=== PATIENT | male | born 1995 | race Two or more races ===

== ENCOUNTER 2018-11-26 20:55 | Emergency (ER) | payer SELFPAY ==
--- NOTE | 2018-11-26 21:47 | EDM.PDOCBH ---
<Roya Sanabria Jo-Ann - Last Filed: 11/26/18 22:41> ED HPI GENERAL MEDICAL PROBLEM - General Chief Complaint: Behavioral/Psych Stated Complaint: SUICIDAL THOUGHTS TOOK 10 PILLS Time Seen by Provider: 11/26/18 21:20 Source of Information: Reports: Patient, RN Notes Reviewed History Limitations: Reports: No Limitations - History of Present Illness INITIAL COMMENTS - FREE TEXT/NARRATIVE: Patient is a 23-year-old male who presents to the ED for the evaluation of suicidal ideations. He notes that he has a history of schizophrenia, and he says he just wasn't feeling good this morning. He ended up taking 10 of his Seroquel in hopes to go to sleep. He states that he does hear voices, however they only tell him that he is God. They never tell him to hurt himself, he denies seeing anything that is not there. He notes that he was baptized roughly 3 years ago, and ever since then his life has not been the same. The patient is from [place], and is up in [place] to visit his brother in hopes to get a possible job. he states that he got his Seroquel prescription from a doctor at [facility] in [place]. He cannot remember the doctor's name however. He states that he has tried therapy in the past, but this just does not work for him. I did ask him specifically if he took these pills in attempts to take his life, and he says he doesn't want to kill himself because he can't , Because he is God. He denies any other feelings of being unwell such as fever/chills, nausea/vomiting/diarrhea, chest pain, shortness of breath. He notes that he did try something similar on November 23 and just he slept all day and woke up that night. - Related Data Allergies Allergy/AdvReac Type Severity Reaction Status Date / Time No Known Allergies Allergy Verified 11/26/18 21:17 Past Medical History Gastrointestinal History: Reports: Other (See Below) (liver issues) Psychiatric History: Reports: Schizophrenia, Suicidal Ideation Social & Family History - Tobacco Use Smoking Status *Q: Light Tobacco Smoker (states that he smokes 1ppd when he has money) Tobacco Use Within Last Twelve Months: Cigarettes Second Hand Smoke Exposure: No - Alcohol Use Alcohol Use History: Yes Alcohol Use Frequency: Rarely (he states that he used to drink when he was younger, but he hurt his liver, so he doesn't drink regularly.) - Recreational Drug Use Recreational Drug Use: Yes Recreational Drug Type: Reports: Cocaine, Marijuana/Hashish, Methamphetamine Recreational Drug Use Comment: He states that he no longer uses drugs, but he used to. - Living Situation & Occupation Living situation: Reports: Single, with Family (with brother) Occupation: Unemployed ED ROS GENERAL - Review of Systems Review Of Systems: See Below Constitutional: Reports: No Symptoms HEENT: Reports: No Symptoms Respiratory: Reports: No Symptoms Cardiovascular: Reports: No Symptoms Endocrine: Reports: No Symptoms GI/Abdominal: Reports: No Symptoms : Reports: No Symptoms Musculoskeletal: Reports: No Symptoms Skin: Reports: No Symptoms Neurological: Reports: No Symptoms Psychiatric: Reports: Hallucinations, Suicidal Ideation (SEE HPI), Other ( hearing voices). Denies: Agitation, Anxiety, Confusion, Cravings, Homicidal Ideation Hematologic/Lymphatic: Reports: No Symptoms Immunologic: Reports: No Symptoms ED EXAM, BEHAVIORAL HEALTH - Physical Exam Exam: See Below Exam Limited By: No Limitations General Appearance: Alert, WD/WN, No Apparent Distress Eye Exam: Bilateral Eye: EOMI, Normal Inspection, PERRL Ears: Normal External Exam Nose: Normal Inspection Throat/Mouth: Normal Inspection Head: Atraumatic, Normocephalic Neck: Normal Inspection, Supple, Non-Tender, Full Range of Motion Respiratory/Chest: No Respiratory Distress, Lungs Clear, Normal Breath Sounds, No Accessory Muscle Use, Chest Non-Tender Cardiovascular: Normal Peripheral Pulses, Regular Rate, Rhythm, No Murmur GI/Abdominal: Normal Bowel Sounds, Soft, Non-Tender, No Distention, No Mass Extremities: Normal Inspection, Normal Capillary Refill Neurological: Alert, Normal Gait, No Motor/Sensory Deficits, Oriented x 3 Psychiatric: Alert, Oriented, Flat Affect, Poor Eye Contact, Withdrawn, Religion Delusions (He hears voices that tell him he is God.), Suicidal Thoughts, Auditory Hallucinations (hears voices that tell him he is God). No: Uncooperative, Homicidal Thoughts, Suicidal Plan, Tangential Thoughts, Visual Hallucinations, Grandiose Thoughts, Pressured Speech, Paranoid Thoughts, Threatening Behavior Skin Exam: Warm, Dry, Intact, Normal color, No rash EKG INTERPRETATION EKG Date: 11/26/18 Time: 21:58 Rhythm: Other (sinus tach) Rate (Beats/Min): 112 Trosper: Normal P-Wave: Present QRS: Normal ST-T: Normal QT: Normal Comparison: NA - No Prior EKG EKG Interpretation Comments: Reviewed with Dr. Colin. COURSE, BEHAVIORAL HEALTH COMP - Course Vital Signs: Last Vital Signs Temp 97.1 F 11/27/18 11:32 Pulse 102 H 11/27/18 11:32 Resp 18 11/27/18 11:32 BP 142/90 H 11/27/18 11:32 Pulse Ox 99 11/27/18 11:32 Orders, Labs, Meds: Active Orders 24 hr Category Date Time Status EKG Documentation Completion [RC] STAT Care 11/26/18 21:23 Active Laboratory Tests 11/26/18 11/26/18 11/26/18 Range/Units 21:40 21:40 21:40 WBC 9.21 H (4.23-9.07) K/mm3 RBC 5.42 (4.63-6.08) M/mm3 Hgb 15.7 (13.7-17.5) gm/L Hct 46.1 (40.1-51.0) % MCV 85.1 (79.0-92.2) fl MCH 29.0 (25.7-32.2) pg MCHC 34.1 (32.2-35.5) g/dl RDW Std Deviation 41.7 (35.1-43.9) fL Plt Count 250 (163-337) K/mm3 MPV 10.7 (9.4-12.3) fl Neutrophils % (Manual) 63 H (40-60) % Band Neutrophils % 0 (0-10) % Lymphocytes % (Manual) 30 (20-40) % Atypical Lymphs % 0 % Monocytes % (Manual) 6 (2-10) % Eosinophils % (Manual) 0 L (0.8-7.0) % Basophils % (Manual) 1 (0.2-1.2) Platelet Estimate Adequate RBC Morph Comment Normal Sodium 139 (136-145) mEq/L Potassium 3.8 (3.5-5.1) mEq/L Chloride 101 (98-107) mEq/L Carbon Dioxide 26 (21-32) mEq/L Anion Gap 15.8 H (5-15) BUN 11 (7-18) mg/dL Creatinine 1.0 (0.7-1.3) mg/dL Est Cr Clr Drug Dosing TNP Estimated GFR (MDRD) > 60 (>60) mL/min BUN/Creatinine Ratio 11.0 L (14-18) Glucose 119 H (74-106) mg/dL Calcium 9.6 (8.5-10.1) mg/dL Total Bilirubin 0.3 (0.2-1.0) mg/dL AST 107 H (15-37) U/L ALT 298 H (16-63) U/L Alkaline Phosphatase 97 (46-116) U/L Total Protein 8.5 H (6.4-8.2) g/dl Albumin 4.3 (3.4-5.0) g/dl Globulin 4.2 gm/dL Albumin/Globulin Ratio 1.0 (1-2) TSH 3rd Generation 1.562 (0.358-3.74) uIU/mL Salicylates 2.1 L (2.8-20) mg/dL Urine Opiates Screen (ZGZVRN=332) Ur Buprenorphine Scrn (CUTOFF=10) Ur Oxycodone Screen (SUS5VR=249) Urine Methadone Screen (SHC1AD=550) Ur Propoxyphene Screen (YQKCEM=504) Acetaminophen 0 L (10-30) ug/mL Ur Barbiturates Screen (WJALAK=761) Ur Tricyclics Screen (SBLZMW=145) Ur Phencyclidine Scrn (CUTOFF=25) Ur Amphetamine Screen (DCAOBJ=525) U Methamphetamines Scrn (YBHXGA=034) U Benzodiazepines Scrn (NIRHVL=016) U Cocaine Metab Screen (AQEVSA=701) U Marijuana (THC) Screen (CUTOFF=50) Ethyl Alcohol 0.00 (0.00) gm% 11/26/18 Range/Units 21:45 WBC (4.23-9.07) K/mm3 RBC (4.63-6.08) M/mm3 Hgb (13.7-17.5) gm/L Hct (40.1-51.0) % MCV (79.0-92.2) fl MCH (25.7-32.2) pg MCHC (32.2-35.5) g/dl RDW Std Deviation (35.1-43.9) fL Plt Count (163-337) K/mm3 MPV (9.4-12.3) fl Neutrophils % (Manual) (40-60) % Band Neutrophils % (0-10) % Lymphocytes % (Manual) (20-40) % Atypical Lymphs % % Monocytes % (Manual) (2-10) % Eosinophils % (Manual) (0.8-7.0) % Basophils % (Manual) (0.2-1.2) Platelet Estimate RBC Morph Comment Sodium (136-145) mEq/L Potassium (3.5-5.1) mEq/L Chloride (98-107) mEq/L Carbon Dioxide (21-32) mEq/L Anion Gap (5-15) BUN (7-18) mg/dL Creatinine (0.7-1.3) mg/dL Est Cr Clr Drug Dosing Estimated GFR (MDRD) (>60) mL/min BUN/Creatinine Ratio (14-18) Glucose (74-106) mg/dL Calcium (8.5-10.1) mg/dL Total Bilirubin (0.2-1.0) mg/dL AST (15-37) U/L ALT (16-63) U/L Alkaline Phosphatase (46-116) U/L Total Protein (6.4-8.2) g/dl Albumin (3.4-5.0) g/dl Globulin gm/dL Albumin/Globulin Ratio (1-2) TSH 3rd Generation (0.358-3.74) uIU/mL Salicylates (2.8-20) mg/dL Urine Opiates Screen Negative (VCJRAS=060) Ur Buprenorphine Scrn Negative (CUTOFF=10) Ur Oxycodone Screen Negative (ESM5IH=914) Urine Methadone Screen Negative (QXO2VD=344) Ur Propoxyphene Screen Negative (WRUGJM=814) Acetaminophen (10-30) ug/mL Ur Barbiturates Screen Negative (KCEUGZ=487) Ur Tricyclics Screen Presumptive positive H (PYPAFV=024) Ur Phencyclidine Scrn Negative (CUTOFF=25) Ur Amphetamine Screen Negative (NKMWNG=634) U Methamphetamines Scrn Negative (FCYQKA=150) U Benzodiazepines Scrn Negative (UXXDLL=735) U Cocaine Metab Screen Negative (UZCRJV=430) U Marijuana (THC) Screen Presumptive positive H (CUTOFF=50) Ethyl Alcohol (0.00) gm% Medications Discontinued Medications Generic Name Dose Route Start Last Admin Trade Name Freq PRN Reason Stop Dose Admin Lorazepam 1 mg 11/26/18 23:43 11/26/18 23:49 Ativan PO 11/26/18 23:44 1 mg ONETIME ONE Administration Discharge vs Psych Eval/Treatment:: 11/26/18 21:59 Patient presents to the ED for evaluation of suicidal ideations. I have ordered medical clearance labs to make sure that he is metabolically okay from hiqdat24 tablets of Seroquel. The patient's EKG shows a sinus tach, but no other acute changes at this time. In talks with the patient I do not believe he has an actual suicidal plan, he told me multiple times that he took the Seroquel just that he can't sleep. He also states that he can't because he is God, he is clearly delusional, but I do not believe that he is suicidal at this very moment. I do believe that he needs further help.I have been in contact with [facility] services, they do not have a crisis bed open tonight, however they state that they will have a possible opening tomorrow morning. Plan is to involve Janae Ribeiro our social services director in the patient's care tomorrow morning and hopefully get the patient transferred to the [facility] crisis bed so that he might be evaluated by a psychiatrist. On a further note, we have been in contact with Gil, and there are no beds at [place] or [facility] at this time. The patient is okay with this plan. 11/26/18 22:24 Pt was given water and asked if he had eaten supper, he denied food at this time. 11/26/18 22:41 Patient's labs have resulted, and are essentially within normal limits, he is presumptive positive for marijuana at this time, and his ALT and AST are elevated. I will give patient report to Dr. Colin and have him assume care of the patient overnight. He is aware of the plan for the patient at this time. Departure - Departure Disposition: Home, Self-Care 01 Clinical Impression: Schizophrenia Qualifiers: Schizophrenia type: other Qualified Code(s): F20.89 - Other schizophrenia; F20.8 - Other schizophrenia - Discharge Information Referrals: PCP,Not In Area [Primary Care Provider] - Forms: ED Department Discharge Additional Instructions: Take the seroquel as prescribed. Follow up with [facility]. <Arnol Reno - Last Filed: 11/27/18 11:45> COURSE, BEHAVIORAL HEALTH COMP - Course Re-Assessment/Re-Exam: Janae came to see the patient and called [facility]. They will come to get him and get him some help. I started him on some seroquel. Departure - Departure Time of Disposition: 11:45 Condition: Good - Discharge Information *PRESCRIPTION DRUG MONITORING PROGRAM REVIEWED*: Not Applicable *COPY OF PRESCRIPTION DRUG MONITORING REPORT IN PATIENT ABIDA: Not Applicable
[2018-11-26 22:29] LABS: ACETAMINOPHEN 0 ug/mL (10-30)
[2018-11-26] MEDS ORDERED: LORazepam 1 MG Tab PO ONE (23:43)
== END 2018-11-27 13:09 | disposition home or self-care (01) ==
LOC: JD.ED 20:55
DX: F20.89 Other schizophrenia (principal); F17.210 Nicotine dependence, cigarettes, uncomplicated
CPT/HCPCS: 36415; 80053; 80306; 84443; 85007; 85027; 93005; 99285; A9270; G0480; 93010; 99283

== ENCOUNTER 2018-12-13 01:34 | Emergency (ER) | payer SELFPAY ==
--- NOTE | 2018-12-13 02:13 | EDM.PDOCBH ---
ED HPI GENERAL MEDICAL PROBLEM - General Chief Complaint: Behavioral/Psych Stated Complaint: [facility] Time Seen by Provider: 12/13/18 01:50 Source of Information: Reports: Patient, RN Notes Reviewed History Limitations: Reports: Altered Mental Status (Patient is not making much sense, is trying to avoid answering questions) - History of Present Illness INITIAL COMMENTS - FREE TEXT/NARRATIVE: The patient has a history of schizophrenia. The patient called EMS because he states that he was not feeling well. When asked to elaborate, he states that he felt overwhelmed. He denies feeling suicidal. He states that his feeling of being overwhelmed started around midnight, and resolved around 02:00, here in the ED. He states that he now feels back to normal. He denies recent illness, including fever, chills, cough, nausea, vomiting, constipation, diarrhea, or urinary symptoms. The patient states that he has had similar feelings of being overwhelmed in the past, randomly, ever since he was baptized at around 19 years of age, and he began reading the Bible. The patient is prescribed Seroquel, but when asked if he takes it, he stated that he only takes it every now and again, perhaps once a week. He states that he took 1 pill just prior to coming to the ED, but that it didn't do anything. The patient states that he has a PCP, but he does not recall their name. - Related Data Allergies Allergy/AdvReac Type Severity Reaction Status Date / Time No Known Allergies Allergy Verified 12/13/18 01:39 Home Meds: Home Meds QUEtiapine [SEROquel] 25 mg PO DAILY 12/13/18 [History] Past Medical History Psychiatric History: Reports: Schizophrenia, Suicide Attempt Endocrine/Metabolic History: Reports: Obesity/BMI 30+ Social & Family History - Tobacco Use Smoking Status *Q: Current Every Day Smoker Years of Tobacco use: 10 Packs/Tins Daily: 1 - Alcohol Use Alcohol Use History: No - Recreational Drug Use Recreational Drug Use: Yes Recreational Drug Type: Reports: Marijuana/Hashish - Living Situation & Occupation Living situation: Reports: Single, with Family (with brother) Occupation: Unemployed ED ROS GENERAL - Review of Systems Review Of Systems: ROS reveals no pertinent complaints other than HPI. ED EXAM, BEHAVIORAL HEALTH - Physical Exam Exam: See Below Exam Limited By: No Limitations General Appearance: Alert, WD/WN, No Apparent Distress Eye Exam: Bilateral Eye: EOMI, Normal Inspection Ears: Normal External Exam, Hearing Grossly Normal Nose: Normal Inspection Throat/Mouth: Normal Inspection, Normal Lips, Normal Voice, No Airway Compromise Head: Atraumatic, Normocephalic Neck: Normal Inspection, Full Range of Motion Respiratory/Chest: No Respiratory Distress, Lungs Clear, Normal Breath Sounds, No Accessory Muscle Use Cardiovascular: Normal Peripheral Pulses, Regular Rate, Rhythm, No Gallop, No JVD, No Murmur, No Rub GI/Abdominal: Normal Bowel Sounds, Soft, Non-Tender, No Organomegaly, No Distention, No Abnormal Bruit, No Mass, Other (Obese) (Male) Exam: Deferred Rectal (Males) Exam: Deferred Back Exam: Normal Inspection, Full Range of Motion, NT Extremities: Normal Inspection, Normal Range of Motion, No Pedal Edema, Normal Capillary Refill Neurological: Alert, No Motor/Sensory Deficits Psychiatric: Flat Affect, Poor Eye Contact, Uncooperative Skin Exam: Warm, Dry, Intact, Normal color, No rash EKG INTERPRETATION EKG Date: 12/13/18 Time: 02:10 Rhythm: NSR Rate (Beats/Min): 90 [place]: Normal P-Wave: Present QRS: Normal ST-T: Normal QT: Normal Comparison: No Change (11/26/2018) COURSE, BEHAVIORAL HEALTH COMP - Course Vital Signs: Last Vital Signs Temp 36.9 C 12/13/18 01:35 Pulse 100 12/13/18 01:35 Resp 18 12/13/18 01:35 BP 166/104 H 12/13/18 01:35 Pulse Ox 96 12/13/18 01:35 Orders, Labs, Meds: Active Orders 24 hr Category Date Time Status EKG Documentation Completion [RC] STAT Care 12/13/18 02:01 Active ACETAMINOPHEN [CHEM] Stat Lab 12/13/18 02:15 Received COMPREHENSIVE METABOLIC PN,CMP [CHEM] Stat Lab 12/13/18 02:15 Received ETHANOL BLOOD MEDICAL [CHEM] Stat Lab 12/13/18 02:15 Received TSH [CHEM] Stat Lab 12/13/18 02:15 Received Laboratory Tests 12/13/18 12/13/18 12/13/18 Range/Units 02:15 02:15 02:25 WBC 8.12 (4.23-9.07) K/mm3 RBC 5.21 (4.63-6.08) M/mm3 Hgb 15.1 (13.7-17.5) gm/L Hct 44.1 (40.1-51.0) % MCV 84.6 (79.0-92.2) fl MCH 29.0 (25.7-32.2) pg MCHC 34.2 (32.2-35.5) g/dl RDW Std Deviation 41.9 (35.1-43.9) fL Plt Count 280 (163-337) K/mm3 MPV 10.1 (9.4-12.3) fl Neutrophils % (Manual) 45 (40-60) % Band Neutrophils % 0 (0-10) % Lymphocytes % (Manual) 41 H (20-40) % Atypical Lymphs % 0 % Monocytes % (Manual) 10 (2-10) % Eosinophils % (Manual) 4 (0.8-7.0) % Basophils % (Manual) 0 L (0.2-1.2) Platelet Estimate Adequate RBC Morph Comment Normal Salicylates 1.8 L (2.8-20) mg/dL Urine Opiates Screen Negative (KIMMAW=161) Ur Buprenorphine Scrn Negative (CUTOFF=10) Ur Oxycodone Screen Negative (BCG9OQ=955) Urine Methadone Screen Negative (FLH0EZ=162) Ur Propoxyphene Screen Negative (SIKTHC=620) Ur Barbiturates Screen Negative (PCYDXB=086) Ur Tricyclics Screen Negative (GOSXIM=099) Ur Phencyclidine Scrn Negative (CUTOFF=25) Ur Amphetamine Screen Negative (IMTCKQ=621) U Methamphetamines Scrn Negative (BETZAB=366) U Benzodiazepines Scrn Negative (MRBCRI=264) U Cocaine Metab Screen Negative (SGIKHI=100) U Marijuana (THC) Screen Negative (CUTOFF=50) Medical Clearance: 12/13/18 02:10 The patient has a history of schizophrenia, and it sounds like he is not compliant with his Seroquel, stating that he only takes it every now and again, perhaps once a week. I am not comfortable that the patient is fit for discharge home. He does not appear to be an immediate harm to himself, but I think it would be in his best interest if he were evaluated by a Psychiatrist for appropriate medications. I have asked the patient to change into a gown, and I have ordered a psychiatric medical clearance panel. I'm hoping that the patient will cooperate; if he does not, I don't believe I have the authority to stop him from leaving. 12/13/18 02:56 Notified by David VO that the patient left the ED about 2 minutes ago. Departure - Departure Time of Disposition: 02:56 Disposition: [facility] 07 Condition: Good Clinical Impression: Schizophrenia Qualifiers: Schizophrenia type: other Qualified Code(s): F20.89 - Other schizophrenia - Discharge Information *PRESCRIPTION DRUG MONITORING PROGRAM REVIEWED*: Not Applicable *COPY OF PRESCRIPTION DRUG MONITORING REPORT IN PATIENT ABIDA: Not Applicable Forms: ED Department Discharge - My Orders Last 24 Hours: My Active Orders 12/13/18 02:01 EKG Documentation Completion [RC] STAT 12/13/18 02:15 ACETAMINOPHEN [CHEM] Stat COMPREHENSIVE METABOLIC PN,CMP [CHEM] Stat ETHANOL BLOOD MEDICAL [CHEM] Stat TSH [CHEM] Stat - Assessment/Plan Last 24 Hours: My Active Orders 12/13/18 02:01 EKG Documentation Completion [RC] STAT 12/13/18 02:15 ACETAMINOPHEN [CHEM] Stat COMPREHENSIVE METABOLIC PN,CMP [CHEM] Stat ETHANOL BLOOD MEDICAL [CHEM] Stat TSH [CHEM] Stat
[2018-12-13 03:46] LABS: ACETAMINOPHEN 0 ug/mL (10-30)
== END 2018-12-13 03:04 | disposition left against medical advice (07) ==
LOC: JD.ED 01:34
DX: F20.89 Other schizophrenia (principal); F17.210 Nicotine dependence, cigarettes, uncomplicated; Z79.899 Other long term (current) drug therapy
CPT/HCPCS: 36415; 80053; 80306; 84443; 85007; 85027; 93005; 99284; G0480; 93010; 99283

== ENCOUNTER 2018-12-21 10:27 | Emergency (ER) | payer SELFPAY ==
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
[2018-12-21 12:20] LABS: ACETAMINOPHEN 0 ug/mL (10-30)
[2018-12-21] MEDS ORDERED: LORazepam 2 MG/ML SDV IM ONE (14:01)
[2018-12-21] MEDS ORDERED: diphenhydrAMINE 50 MG/ML SDV IM ONE (14:01)
[2018-12-21] MEDS ORDERED: Haloperidol Lactate 5 MG/ML SDV IM ONE (14:01)
== END 2018-12-21 14:20 ==
LOC: JD.ED 10:27
DX: T43.592A Poisoning by other antipsychotics and neuroleptics, intentional self-harm, initial encounter (principal); T42.4X2A Poisoning by benzodiazepines, intentional self-harm, initial encounter; F20.89 Other schizophrenia; E66.9 Obesity, unspecified; F17.210 Nicotine dependence, cigarettes, uncomplicated
CPT/HCPCS: 36415; 80053; 80306; 81001; 84443; 85025; 85610; 93005; 96372; 99284; G0480; J1200; J1630; J2060; 99283

== ENCOUNTER 2019-01-14 21:58 | Emergency (ER) | payer MEDICAID ==
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
== END 2019-01-14 22:58 | disposition home or self-care (01) ==
LOC: JD.ED 21:58
DX: R51 Headache (principal); F17.210 Nicotine dependence, cigarettes, uncomplicated
CPT/HCPCS: 99282; 99283

== ENCOUNTER 2019-01-15 20:10 | Emergency (ER) | payer MEDICAID ==
--- NOTE | 2019-01-15 20:40 | EDM.PDOC ---
ED HPI GENERAL MEDICAL PROBLEM - General Chief Complaint: General Stated Complaint: DOES NOT FEEL BODY/NUMB Time Seen by Provider: 01/15/19 20:21 Source of Information: Reports: Patient, RN Notes Reviewed History Limitations: Reports: No Limitations - History of Present Illness INITIAL COMMENTS - FREE TEXT/NARRATIVE: The patient has a history of untreated schizophrenia, therefore requiring a history from him is typically difficult. The patient was seen by me in this ED late last night, with a complaint of 4 years of a right sided headache. His neurologic examination was completely normal, and he informed me that he had previously had a negative CT scan of his head in [place], therefore I did not see an indication for an emergency CT scan of his head. I referred him to the clinic. The patient now returns to the ED stating that he can't feel his body, with onset just a few minutes prior to coming to the ED. Nevertheless, he was able to drive himself here. He states that he has had similar symptoms in the past, although not as severe. The triage nurse informs me that the patient was not cooperative answering questions, however, he may have forgotten to not answer questions with me, and by the end of my examination, he appeared to be back to normal. The patient did not call the clinic to make an appointment today. The patient does not have a PCP. His Psychiatrist is at [facility]. - Related Data Allergies Allergy/AdvReac Type Severity Reaction Status Date / Time No Known Allergies Allergy Verified 12/21/18 10:38 Home Meds: Home Meds . [No Known Home Meds] 01/14/19 [History] Past Medical History Neurological History: Reports: Headaches, Chronic Psychiatric History: Reports: Schizophrenia (untreated), Suicide Attempt Endocrine/Metabolic History: Reports: Obesity/BMI 30+ Social & Family History - Tobacco Use Smoking Status *Q: Current Every Day Smoker Years of Tobacco use: 12 Packs/Tins Daily: 1 - Caffeine Use Caffeine Use: Reports: None - Alcohol Use Alcohol Use History: Yes Alcohol Use Frequency: Socially - Recreational Drug Use Recreational Drug Use: Yes Drug Use in Last 12 Months: No Recreational Drug Type: Reports: Marijuana/Hashish (smokes on occasion), Methamphetamine (has smoked in the past) - Living Situation & Occupation Living situation: Reports: Single, with Family (Brother) Occupation: Unemployed ED ROS GENERAL - Review of Systems Review Of Systems: ROS reveals no pertinent complaints other than HPI. ED EXAM, GENERAL - Physical Exam Exam: See Below Exam Limited By: No Limitations General Appearance: Alert, WD/WN, No Apparent Distress Eye Exam: Bilateral Eye: EOMI, Normal Inspection Ears: Normal External Exam, Hearing Grossly Normal Nose: Normal Inspection Throat/Mouth: Normal Inspection, Normal Lips, Normal Voice, No Airway Compromise Head: Atraumatic, Normocephalic Neck: Normal Inspection, Full Range of Motion Respiratory/Chest: No Respiratory Distress, Lungs Clear, Normal Breath Sounds, No Accessory Muscle Use Cardiovascular: Normal Peripheral Pulses, Regular Rate, Rhythm, No Edema, No Gallop, No JVD, No Murmur, No Rub Peripheral Pulses: 4+: Radial (L), Radial (R) GI/Abdominal: Normal Bowel Sounds, Soft, Non-Tender, No Organomegaly, No Distention, No Abnormal Bruit, No Mass, Other (Obese) (Male) Exam: Deferred Rectal (Males) Exam: Deferred Back Exam: Normal Inspection, Full Range of Motion, NT Extremities: Normal Inspection, Normal Range of Motion, No Pedal Edema, Normal Capillary Refill Neurological: Alert, No Motor/Sensory Deficits Psychiatric: Normal Affect Skin Exam: Warm, Dry, Intact, Normal Color, No Rash EKG INTERPRETATION EKG Date: 01/15/19 Time: 20:36 Rhythm: NSR (Single PAC) Rate (Beats/Min): 88 Mobile: Normal P-Wave: Present QRS: Normal ST-T: Elevated (Diffuse minimal J-point elevation, but no T-wave inversion - no ischemic changes) QT: Normal Comparison: No Change (12/21/2018) Course - Vital Signs Last Recorded V/S: Last Vital Signs Temp 36.9 C 01/15/19 20:18 Pulse 95 01/15/19 20:18 Resp 20 01/15/19 20:18 BP 138/82 01/15/19 20:18 Pulse Ox 95 01/15/19 20:18 Orthostatic Blood Pressure [ 135/94 Standing] Orthostatic Blood Pressure [ 139/85 Supine] - Orders/Labs/Meds Orders: Active Orders 24 hr Category Date Time Status EKG Documentation Completion [RC] STAT Care 01/15/19 20:30 Active Orthostatic Vital Signs [RC] STAT Care 01/15/19 20:30 Active Orthostatic Vital Signs [RC] STAT Care 01/15/19 20:59 Active Labs: Laboratory Tests 01/15/19 01/15/19 01/15/19 Range/Units 20:40 20:40 20:40 WBC 7.74 (4.23-9.07) K/mm3 RBC 5.10 (4.63-6.08) M/mm3 Hgb 14.9 (13.7-17.5) gm/L Hct 44.1 (40.1-51.0) % MCV 86.5 (79.0-92.2) fl MCH 29.2 (25.7-32.2) pg MCHC 33.8 (32.2-35.5) g/dl RDW Std Deviation 43.8 (35.1-43.9) fL Plt Count 274 (163-337) K/mm3 MPV 10.3 (9.4-12.3) fl Neutrophils % (Manual) 45 (40-60) % Band Neutrophils % 0 (0-10) % Lymphocytes % (Manual) 41 H (20-40) % Atypical Lymphs % 0 % Monocytes % (Manual) 10 (2-10) % Eosinophils % (Manual) 4 (0.8-7.0) % Basophils % (Manual) 0 L (0.2-1.2) Platelet Estimate Adequate Plt Morphology Comment Normal RBC Morph Comment Normal D-Dimer, Quantitative 0.66 H (0.19-0.50) mg/L Puncture Site ABG pH (7.35-7.45) ABG pCO2 (35.0-45.0) mmHg ABG pO2 (80.0-100.0) mmHg ABG HCO3 (22.0-26.0) meq/L ABG O2 Saturation (96.0-97.0) % ABG Base Excess (-2-2.0) Calin Test A-a Gradient mmHg O2 Delivery Device Sodium 139 (136-145) mEq/L Potassium 3.8 (3.5-5.1) mEq/L Chloride 104 (98-107) mEq/L Carbon Dioxide 25 (21-32) mEq/L Anion Gap 13.8 (5-15) BUN 14 (7-18) mg/dL Creatinine 1.0 (0.7-1.3) mg/dL Est Cr Clr Drug Dosing TNP Estimated GFR (MDRD) > 60 (>60) mL/min BUN/Creatinine Ratio 14.0 (14-18) Glucose 139 H (74-106) mg/dL Calcium 8.9 (8.5-10.1) mg/dL Total Bilirubin 0.6 (0.2-1.0) mg/dL AST 215 H (15-37) U/L ALT 538 H (16-63) U/L Alkaline Phosphatase 97 (46-116) U/L Troponin I < 0.017 (0.00-0.056) ng/mL Total Protein 8.1 (6.4-8.2) g/dl Albumin 4.2 (3.4-5.0) g/dl Globulin 3.9 gm/dL Albumin/Globulin Ratio 1.1 (1-2) TSH 3rd Generation 1.228 (0.358-3.74) uIU/mL Urine Color (Yellow) Urine Appearance (Clear) Urine pH (5.0-8.0) Ur Specific [place] (1.005-1.030) Urine Protein (Negative) Urine Glucose (UA) (Negative) Urine Ketones (Negative) Urine Occult Blood (Negative) Urine Nitrite (Negative) Urine Bilirubin (Negative) Urine Urobilinogen (0.2-1.0) Ur Leukocyte Esterase (Negative) Urine RBC (0-5) /hpf Urine WBC (0-5) /hpf Ur Epithelial Cells (0-5) /hpf Urine Bacteria (FEW) /hpf Urine Mucus (FEW) /hpf Salicylates (2.8-20) mg/dL Urine Opiates Screen (BDMYDP=371) Ur Buprenorphine Scrn (CUTOFF=10) Ur Oxycodone Screen (LEE5BU=338) Urine Methadone Screen (GJT7SO=488) Ur Propoxyphene Screen (AAONAF=489) Acetaminophen 0 L (10-30) ug/mL Ur Barbiturates Screen (YLOTQI=161) Ur Tricyclics Screen (QEDRZN=139) Ur Phencyclidine Scrn (CUTOFF=25) Ur Amphetamine Screen (RBWLHM=427) U Methamphetamines Scrn (NMJZPS=677) U Benzodiazepines Scrn (EMTHVF=022) U Cocaine Metab Screen (MBWMBD=532) U Marijuana (THC) Screen (CUTOFF=50) Ethyl Alcohol 0.00 (0.00) gm% 01/15/19 01/15/19 01/15/19 Range/Units 20:40 20:50 20:54 WBC (4.23-9.07) K/mm3 RBC (4.63-6.08) M/mm3 Hgb (13.7-17.5) gm/L Hct (40.1-51.0) % MCV (79.0-92.2) fl MCH (25.7-32.2) pg MCHC (32.2-35.5) g/dl RDW Std Deviation (35.1-43.9) fL Plt Count (163-337) K/mm3 MPV (9.4-12.3) fl Neutrophils % (Manual) (40-60) % Band Neutrophils % (0-10) % Lymphocytes % (Manual) (20-40) % Atypical Lymphs % % Monocytes % (Manual) (2-10) % Eosinophils % (Manual) (0.8-7.0) % Basophils % (Manual) (0.2-1.2) Platelet Estimate Plt Morphology Comment RBC Morph Comment D-Dimer, Quantitative (0.19-0.50) mg/L Puncture Site ABG pH (7.35-7.45) ABG pCO2 (35.0-45.0) mmHg ABG pO2 (80.0-100.0) mmHg ABG HCO3 (22.0-26.0) meq/L ABG O2 Saturation (96.0-97.0) % ABG Base Excess (-2-2.0) Calin Test A-a Gradient mmHg O2 Delivery Device Sodium (136-145) mEq/L Potassium (3.5-5.1) mEq/L Chloride (98-107) mEq/L Carbon Dioxide (21-32) mEq/L Anion Gap (5-15) BUN (7-18) mg/dL Creatinine (0.7-1.3) mg/dL Est Cr Clr Drug Dosing Estimated GFR (MDRD) (>60) mL/min BUN/Creatinine Ratio (14-18) Glucose (74-106) mg/dL Calcium (8.5-10.1) mg/dL Total Bilirubin (0.2-1.0) mg/dL AST (15-37) U/L ALT (16-63) U/L Alkaline Phosphatase (46-116) U/L Troponin I (0.00-0.056) ng/mL Total Protein (6.4-8.2) g/dl Albumin (3.4-5.0) g/dl Globulin gm/dL Albumin/Globulin Ratio (1-2) TSH 3rd Generation (0.358-3.74) uIU/mL Urine Color Yellow (Yellow) Urine Appearance Clear (Clear) Urine pH 7.0 (5.0-8.0) Ur Specific [place] 1.020 (1.005-1.030) Urine Protein 1+ H (Negative) Urine Glucose (UA) Negative (Negative) Urine Ketones Negative (Negative) Urine Occult Blood Negative (Negative) Urine Nitrite Negative (Negative) Urine Bilirubin Negative (Negative) Urine Urobilinogen 4.0 H (0.2-1.0) Ur Leukocyte Esterase Negative (Negative) Urine RBC Not seen (0-5) /hpf Urine WBC Not seen (0-5) /hpf Ur Epithelial Cells 0-5 (0-5) /hpf Urine Bacteria Not seen (FEW) /hpf Urine Mucus Not seen (FEW) /hpf Salicylates 1.5 L (2.8-20) mg/dL Urine Opiates Screen Negative (MKIXDY=035) Ur Buprenorphine Scrn Negative (CUTOFF=10) Ur Oxycodone Screen Negative (LXS6NT=229) Urine Methadone Screen Negative (IVZ4QH=766) Ur Propoxyphene Screen Negative (OMEBVV=844) Acetaminophen (10-30) ug/mL Ur Barbiturates Screen Negative (RPZFEA=330) Ur Tricyclics Screen Negative (FEFXJS=411) Ur Phencyclidine Scrn Negative (CUTOFF=25) Ur Amphetamine Screen Negative (YROCLD=904) U Methamphetamines Scrn Negative (PRLPUC=173) U Benzodiazepines Scrn Negative (NMQLOQ=372) U Cocaine Metab Screen Negative (UXYDPL=504) U Marijuana (THC) Screen Presumptive positive H (CUTOFF=50) Ethyl Alcohol (0.00) gm% 01/15/19 Range/Units 21:25 WBC (4.23-9.07) K/mm3 RBC (4.63-6.08) M/mm3 Hgb (13.7-17.5) gm/L Hct (40.1-51.0) % MCV (79.0-92.2) fl MCH (25.7-32.2) pg MCHC (32.2-35.5) g/dl RDW Std Deviation (35.1-43.9) fL Plt Count (163-337) K/mm3 MPV (9.4-12.3) fl Neutrophils % (Manual) (40-60) % Band Neutrophils % (0-10) % Lymphocytes % (Manual) (20-40) % Atypical Lymphs % % Monocytes % (Manual) (2-10) % Eosinophils % (Manual) (0.8-7.0) % Basophils % (Manual) (0.2-1.2) Platelet Estimate Plt Morphology Comment RBC Morph Comment D-Dimer, Quantitative (0.19-0.50) mg/L Puncture Site Rt radial ABG pH 7.37 (7.35-7.45) ABG pCO2 38.7 (35.0-45.0) mmHg ABG pO2 84.0 (80.0-100.0) mmHg ABG HCO3 22.0 (22.0-26.0) meq/L ABG O2 Saturation 96.8 (96.0-97.0) % ABG Base Excess -2.4 L (-2-2.0) Calin Test Positive A-a Gradient 2 mmHg O2 Delivery Device Room air Sodium (136-145) mEq/L Potassium (3.5-5.1) mEq/L Chloride (98-107) mEq/L Carbon Dioxide (21-32) mEq/L Anion Gap (5-15) BUN (7-18) mg/dL Creatinine (0.7-1.3) mg/dL Est Cr Clr Drug Dosing Estimated GFR (MDRD) (>60) mL/min BUN/Creatinine Ratio (14-18) Glucose (74-106) mg/dL Calcium (8.5-10.1) mg/dL Total Bilirubin (0.2-1.0) mg/dL AST (15-37) U/L ALT (16-63) U/L Alkaline Phosphatase (46-116) U/L Troponin I (0.00-0.056) ng/mL Total Protein (6.4-8.2) g/dl Albumin (3.4-5.0) g/dl Globulin gm/dL Albumin/Globulin Ratio (1-2) TSH 3rd Generation (0.358-3.74) uIU/mL Urine Color (Yellow) Urine Appearance (Clear) Urine pH (5.0-8.0) Ur Specific [place] (1.005-1.030) Urine Protein (Negative) Urine Glucose (UA) (Negative) Urine Ketones (Negative) Urine Occult Blood (Negative) Urine Nitrite (Negative) Urine Bilirubin (Negative) Urine Urobilinogen (0.2-1.0) Ur Leukocyte Esterase (Negative) Urine RBC (0-5) /hpf Urine WBC (0-5) /hpf Ur Epithelial Cells (0-5) /hpf Urine Bacteria (FEW) /hpf Urine Mucus (FEW) /hpf Salicylates (2.8-20) mg/dL Urine Opiates Screen (YCBPUN=361) Ur Buprenorphine Scrn (CUTOFF=10) Ur Oxycodone Screen (WHM9MH=879) Urine Methadone Screen (TFI3EU=731) Ur Propoxyphene Screen (OOWCYH=517) Acetaminophen (10-30) ug/mL Ur Barbiturates Screen (OIPPPR=615) Ur Tricyclics Screen (WWMXQH=938) Ur Phencyclidine Scrn (CUTOFF=25) Ur Amphetamine Screen (NAQHRN=955) U Methamphetamines Scrn (DWADXN=702) U Benzodiazepines Scrn (RNEZUH=234) U Cocaine Metab Screen (WIRZFD=165) U Marijuana (THC) Screen (CUTOFF=50) Ethyl Alcohol (0.00) gm% Meds: Medications Discontinued Medications Generic Name Dose Route Start Last Admin Trade Name Freq PRN Reason Stop Dose Admin Sodium Chloride 1,000 mls @ 999 mls/hr 01/15/19 20:58 01/15/19 21:09 Normal Saline IV 01/15/19 21:58 999 mls/hr ONETIME ONE Administration - Re-Assessments/Exams Free Text/Narrative Re-Assessment/Exam: 01/15/19 20:32 The patient may be suffering from hyperventilation syndrome. I have ordered a medical evaluation. 01/15/19 20:59 The patient's orthostatics are positive. I have therefore ordered 1 L of IV fluid, to be followed by repeat orthostatics. 01/15/19 22:58 Following 1 L of IV fluid, the patient is no longer orthostatic. His CBC is unremarkable. His CMP is remarkable for a blood glucose mildly elevated at 139, and an AST/ ALT of 215/538. The remainder of his CMP is unremarkable. His troponin is undetectably low. His d-dimer is only slightly elevated at 0.66, not consistent with a pulmonary embolus, given the patient's body habitus. His TSH is within normal limits. His acetaminophen level is 0. His salicylate level is low at 1.5. His ethanol level is 0. His ABG is normal. His urinalysis is unremarkable. His urine drug screen is positive for marijuana only. It appears that the patient's whole body numbness is psychogenic in etiology, although it is possible that it may be related to his smoking marijuana. I do not find any significant physical abnormality other than orthostasis, but that would not cause whole body numbness. I believe the patient may safely be discharged home. 01/15/19 23:04 Test results discussed with the patient. It is not clear exactly what he understands. I encouraged him to follow-up in the clinic, as previously recommended. He said he would. Departure - Departure Time of Disposition: 23:05 Disposition: Home, Self-Care 01 Condition: Good Clinical Impression: Marijuana use, Orthostasis - Discharge Information *PRESCRIPTION DRUG MONITORING PROGRAM REVIEWED*: Not Applicable *COPY OF PRESCRIPTION DRUG MONITORING REPORT IN PATIENT ABIDA: Not Applicable Referrals: Marcus Babcock PA [Physician Perch Machine Inspector] - Forms: ED Department Discharge Additional Instructions: You were seen in the emergency room for whole body numbness, the sensation that you couldn't breathe, and difficulty sleeping. Workup in the ER included blood work, an arterial blood gas, a urinalysis, a urine drug screen, positional blood pressure checks, and an ECG. Your workup found that your blood pressure dropped excessively between lying and standing, a condition known as orthostasis. This is due to not drinking enough fluid. You were given 1 L of IV fluid, and your blood pressure normalized. Your urine drug screen was positive for marijuana. The remainder of your workup was unremarkable. We recommend that you stay adequately hydrated. Gatorade or Powerade are best. We recommend that you avoid smoking marijuana. We recommend that you follow-up with Marcus Babcock, or one of the other providers in the clinic, at the next available appointment. If any other problems, please do not hesitate to return to the ER. - My Orders Last 24 Hours: My Active Orders 01/15/19 20:30 EKG Documentation Completion [RC] STAT Orthostatic Vital Signs [RC] STAT 01/15/19 20:59 Orthostatic Vital Signs [RC] STAT - Assessment/Plan Last 24 Hours: My Active Orders 01/15/19 20:30 EKG Documentation Completion [RC] STAT Orthostatic Vital Signs [RC] STAT 01/15/19 20:59 Orthostatic Vital Signs [RC] STAT
[2019-01-15] MEDS ORDERED: Sodium Chloride 0.9% 1,000 ML IV ONE (20:58)
[2019-01-15 21:22] LABS: ACETAMINOPHEN 0 ug/mL (10-30)
== END 2019-01-15 23:15 | disposition home or self-care (01) ==
LOC: JD.ED 20:10
DX: F12.90 Cannabis use, unspecified, uncomplicated (principal); F20.9 Schizophrenia, unspecified; I95.1 Orthostatic hypotension; F17.210 Nicotine dependence, cigarettes, uncomplicated; E66.9 Obesity, unspecified; Z68.30 Body mass index [BMI] 30.0-30.9, adult
CPT/HCPCS: 36415; 36600; 80053; 80306; 81001; 82803; 84443; 84484; 85007; 85027; 85379; 93005; 96360; 96361; 99284; G0480; J7040; 99283

== ENCOUNTER 2019-01-16 14:22 | Emergency (ER) | payer MEDICAID ==
[2019-01-16] MEDS ORDERED: OLANZapine 5 MG Tab PO ONE ×2 (14:44→17:45)
--- NOTE | 2019-01-16 14:48 | EDM.PDOCBH ---
ED HPI GENERAL MEDICAL PROBLEM - General Chief Complaint: Behavioral/Psych Stated Complaint: BEHAVIORAL ISSUES Time Seen by Provider: 01/16/19 14:46 Source of Information: Reports: Patient History Limitations: Reports: No Limitations - History of Present Illness INITIAL COMMENTS - FREE TEXT/NARRATIVE: 23-year-old male is brought in by police after homicidal threats. [facility] had police do a welfare check. Per the police he told him that he killed his 2 cousins. They spoke with the patient's mom lives in [place] and states that his 2 cousins live in [place] and [place] and are fine. However , she is very concerned about her son. Patient past medical history of schizophrenia. Does not sound like he is taking his medications. It does not sounds like he is go his appointments with [facility]. Unclear exactly what medications he is at this time. He states that he is very hungry and has not had anything to eat. He states that he is very tired and has not slept. He is very difficult to get a history from. Very tangental and has voodoo delusions and ideas of grandeur. States that he states with his father is here to save us. Identifies his father is God. States that we all think he is crazy but he knows he is not crazy. Patient was seen by myself December 21. Attempted to commit him at that time, however , he was uncooperative and pressed the crisis button on several occasions prompting the [employer] to present to the hospital. Things escalated and he ultimately ends up being taken to half-way and terrorizing charges as he threatened to kill nursing staff and their families as well as police. committal paperwork was filed in the hopes that he would be released from half-way and admitted to a psychiatric facility. Is unclear if this happens. He has been in the ER on the and the for unrelated issues and suggested to the provider at that time that he was hospitalized psychiatrically for 1 day. - Related Data Allergies Allergy/AdvReac Type Severity Reaction Status Date / Time No Known Allergies Allergy Verified 01/16/19 14:33 Home Meds: Home Meds . [No Known Home Meds] 01/14/19 [History] Past Medical History HEENT History: Reports: None Cardiovascular History: Reports: None Respiratory History: Reports: None Genitourinary History: Reports: None Musculoskeletal History: Reports: None Neurological History: Reports: Headaches, Chronic Psychiatric History: Reports: Schizophrenia, Suicide Attempt Endocrine/Metabolic History: Reports: Obesity/BMI 30+ Hematologic History: Reports: None Immunologic History: Reports: None Oncologic (Cancer) History: Reports: None Dermatologic History: Reports: None - Infectious Disease History Infectious Disease History: Reports: None - Past Surgical History Head Surgeries/Procedures: Reports: None Social & Family History - Caffeine Use Caffeine Use: Reports: None - Living Situation & Occupation Living situation: Reports: Single, with Family (Brother) Occupation: Unemployed ED ROS GENERAL - Review of Systems Review Of Systems: Unable To Obtain (dpes nto answer ROS questions approptriately) ED EXAM, BEHAVIORAL HEALTH - Physical Exam Exam: See Below Exam Limited By: No Limitations General Appearance: Alert, WD/WN, No Apparent Distress, Obese Ears: Normal External Exam Nose: Normal Inspection Throat/Mouth: Normal Inspection, Normal Lips, Normal Voice, No Airway Compromise Respiratory/Chest: No Respiratory Distress, Lungs Clear, Normal Breath Sounds Cardiovascular: Normal Peripheral Pulses, Regular Rate, Rhythm, No Murmur GI/Abdominal: Soft, Non-Tender Neurological: Alert Psychiatric: Tearful (at times), Sabianism Delusions, Tangential Thoughts, Grandiose Thoughts. No: Agitated Skin Exam: Warm, Dry, Normal color COURSE, BEHAVIORAL HEALTH COMP - Course Vital Signs: Last Vital Signs Temp 98.7 F 01/16/19 14:33 Pulse 116 H 01/16/19 14:33 Resp 16 01/16/19 14:33 BP 155/122 H 01/16/19 14:33 Pulse Ox 98 01/16/19 14:33 Orders, Labs, Meds: Active Orders 24 hr Category Date Time Status HEPATITIS PANEL (4) [REF] Stat Lab 01/16/19 16:24 Received Laboratory Tests 01/16/19 01/16/19 01/16/19 Range/Units 14:45 14:45 15:00 WBC 8.31 (4.23-9.07) K/mm3 RBC 5.40 (4.63-6.08) M/mm3 Hgb 15.8 (13.7-17.5) gm/L Hct 45.8 (40.1-51.0) % MCV 84.8 (79.0-92.2) fl MCH 29.3 (25.7-32.2) pg MCHC 34.5 (32.2-35.5) g/dl RDW Std Deviation 42.3 (35.1-43.9) fL Plt Count 265 (163-337) K/mm3 MPV 10.2 (9.4-12.3) fl Neut % (Auto) 49.8 (34.0-67.9) % Lymph % (Auto) 39.5 (21.8-53.1) % Park % (Auto) 9.6 (5.3-12.2) % Eos % (Auto) 0.5 L (0.8-7.0) Baso % (Auto) 0.4 (0.1-1.2) % Neut # (Auto) 4.14 (1.78-5.38) K/mm3 Lymph # (Auto) 3.28 (1.32-3.57) K/mm3 Park # (Auto) 0.80 (0.30-0.82) K/mm3 Eos # (Auto) 0.04 (0.04-0.54) K/mm3 Baso # (Auto) 0.03 (0.01-0.08) K/mm3 Sodium (136-145) mEq/L Potassium (3.5-5.1) mEq/L Chloride (98-107) mEq/L Carbon Dioxide (21-32) mEq/L Anion Gap (5-15) BUN (7-18) mg/dL Creatinine (0.7-1.3) mg/dL Est Cr Clr Drug Dosing mL/min Estimated GFR (MDRD) (>60) mL/min BUN/Creatinine Ratio (14-18) Glucose (74-106) mg/dL Calcium (8.5-10.1) mg/dL Magnesium (1.8-2.4) mg/dl Total Bilirubin (0.2-1.0) mg/dL AST (15-37) U/L ALT (16-63) U/L Alkaline Phosphatase (46-116) U/L Total Protein (6.4-8.2) g/dl Albumin (3.4-5.0) g/dl Globulin gm/dL Albumin/Globulin Ratio (1-2) TSH 3rd Generation (0.358-3.74) uIU/mL Urine Color Yellow (Yellow) Urine Appearance Clear (Clear) Urine pH 7.0 (5.0-8.0) Ur Specific [place] 1.010 (1.005-1.030) Urine Protein Negative (Negative) Urine Glucose (UA) Negative (Negative) Urine Ketones Negative (Negative) Urine Occult Blood Negative (Negative) Urine Nitrite Negative (Negative) Urine Bilirubin Negative (Negative) Urine Urobilinogen 0.2 (0.2-1.0) Ur Leukocyte Esterase Negative (Negative) Urine RBC Not seen (0-5) /hpf Urine WBC Not seen (0-5) /hpf Ur Squamous Epith Cells Not seen (0-5) /hpf Urine Bacteria Not seen (FEW) /hpf Urine Mucus Not seen (FEW) /hpf Salicylates (2.8-20) mg/dL Urine Opiates Screen Negative (DORDZK=260) Ur Buprenorphine Scrn Negative (CUTOFF=10) Ur Oxycodone Screen Negative (RLP4XI=514) Urine Methadone Screen Negative (XFQ2QK=281) Ur Propoxyphene Screen Negative (XSFGKU=506) Acetaminophen (10-30) ug/mL Ur Barbiturates Screen Negative (RANRYB=977) Ur Tricyclics Screen Negative (ONLTCN=459) Ur Phencyclidine Scrn Negative (CUTOFF=25) Ur Amphetamine Screen Negative (OFBNAB=394) U Methamphetamines Scrn Negative (UUFIXG=720) U Benzodiazepines Scrn Negative (GKKFGL=495) U Cocaine Metab Screen Negative (CHWQLM=611) U Marijuana (THC) Screen Negative (CUTOFF=50) Ethyl Alcohol (0.00) gm% 01/16/19 01/16/19 Range/Units 15:00 15:00 WBC (4.23-9.07) K/mm3 RBC (4.63-6.08) M/mm3 Hgb (13.7-17.5) gm/L Hct (40.1-51.0) % MCV (79.0-92.2) fl MCH (25.7-32.2) pg MCHC (32.2-35.5) g/dl RDW Std Deviation (35.1-43.9) fL Plt Count (163-337) K/mm3 MPV (9.4-12.3) fl Neut % (Auto) (34.0-67.9) % Lymph % (Auto) (21.8-53.1) % Park % (Auto) (5.3-12.2) % Eos % (Auto) (0.8-7.0) Baso % (Auto) (0.1-1.2) % Neut # (Auto) (1.78-5.38) K/mm3 Lymph # (Auto) (1.32-3.57) K/mm3 Park # (Auto) (0.30-0.82) K/mm3 Eos # (Auto) (0.04-0.54) K/mm3 Baso # (Auto) (0.01-0.08) K/mm3 Sodium 136 (136-145) mEq/L Potassium 3.3 L (3.5-5.1) mEq/L Chloride 100 (98-107) mEq/L Carbon Dioxide 21 (21-32) mEq/L Anion Gap 18.3 H (5-15) BUN 9 (7-18) mg/dL Creatinine 0.9 (0.7-1.3) mg/dL Est Cr Clr Drug Dosing 126.56 mL/min Estimated GFR (MDRD) > 60 (>60) mL/min BUN/Creatinine Ratio 10.0 L (14-18) Glucose 98 (74-106) mg/dL Calcium 9.6 (8.5-10.1) mg/dL Magnesium 2.1 (1.8-2.4) mg/dl Total Bilirubin 0.7 (0.2-1.0) mg/dL AST 218 H (15-37) U/L ALT 581 H (16-63) U/L Alkaline Phosphatase 104 (46-116) U/L Total Protein 9.0 H (6.4-8.2) g/dl Albumin 4.8 (3.4-5.0) g/dl Globulin 4.2 gm/dL Albumin/Globulin Ratio 1.1 (1-2) TSH 3rd Generation 1.836 (0.358-3.74) uIU/mL Urine Color (Yellow) Urine Appearance (Clear) Urine pH (5.0-8.0) Ur Specific [place] (1.005-1.030) Urine Protein (Negative) Urine Glucose (UA) (Negative) Urine Ketones (Negative) Urine Occult Blood (Negative) Urine Nitrite (Negative) Urine Bilirubin (Negative) Urine Urobilinogen (0.2-1.0) Ur Leukocyte Esterase (Negative) Urine RBC (0-5) /hpf Urine WBC (0-5) /hpf Ur Squamous Epith Cells (0-5) /hpf Urine Bacteria (FEW) /hpf Urine Mucus (FEW) /hpf Salicylates 0.9 L (2.8-20) mg/dL Urine Opiates Screen (BHFKJW=261) Ur Buprenorphine Scrn (CUTOFF=10) Ur Oxycodone Screen (UKS3LT=661) Urine Methadone Screen (KHE4AO=911) Ur Propoxyphene Screen (GUGFXS=078) Acetaminophen 0 L (10-30) ug/mL Ur Barbiturates Screen (SODLPJ=170) Ur Tricyclics Screen (GIBNZH=472) Ur Phencyclidine Scrn (CUTOFF=25) Ur Amphetamine Screen (PFOJJP=997) U Methamphetamines Scrn (TMUFXI=495) U Benzodiazepines Scrn (ZQHLSD=331) U Cocaine Metab Screen (LIKNNY=671) U Marijuana (THC) Screen (CUTOFF=50) Ethyl Alcohol 0.00 (0.00) gm% Medications Discontinued Medications Generic Name Dose Route Start Last Admin Trade Name Freq PRN Reason Stop Dose Admin Olanzapine 10 mg 01/16/19 14:44 01/16/19 14:49 Zyprexa PO 01/16/19 14:45 10 mg ONETIME ONE Administration Potassium Chloride 20 meq 01/16/19 16:06 01/16/19 16:16 Klor-Con M20 PO 01/16/19 16:07 20 meq ONETIME ONE Administration Re-Assessment/Re-Exam: 17:30 labs performed. A hepatits panel added. He reports he had a fatty liver in the past however, his hepatitis panel was added. spoke with Dr. Jennings, psychiatrist at [facility] in [place]. Asked we give her an update give him an additional Zyprexa 10 mg by mouth if he does become agitated. She does accept the patient. Plan at this time he will go by at around 1800 to [facility] in [place]. He is to direct admission to Dr. Jennings. If he does become agitated we will give him additional dosages Zyprexa and he will go through the ED. Departure - Departure Time of Disposition: 17:32 Disposition: DC/Tfer to Psych Hosp/Unit [facility] Condition: Fair Clinical Impression: Delusional disorder, Homicidal ideation Schizophrenia Qualifiers: Schizophrenia type: other Qualified Code(s): F20.89 - Other schizophrenia - Discharge Information *PRESCRIPTION DRUG MONITORING PROGRAM REVIEWED*: No *COPY OF PRESCRIPTION DRUG MONITORING REPORT IN PATIENT ABIDA: No Referrals: PCP,None [Primary Care Provider] - Forms: ED Department Discharge Additional Instructions: Brooks to go by [facility] to [facility] in [place]. Dr. Jennings accepting. - My Orders Last 24 Hours: My Active Orders 01/16/19 16:24 HEPATITIS PANEL (4) [REF] Stat - Assessment/Plan Last 24 Hours: My Active Orders 01/16/19 16:24 HEPATITIS PANEL (4) [REF] Stat
[2019-01-16 16:00] LABS: ACETAMINOPHEN 0 ug/mL (10-30)
[2019-01-16] MEDS ORDERED: Potassium Chloride 20 MEQ Tab.ER PO ONE (16:06)
== END 2019-01-16 18:10 ==
LOC: JD.ED 14:22
DX: F20.89 Other schizophrenia (principal)
CPT/HCPCS: 36415; 80053; 80074; 80306; 81001; 83735; 84443; 85025; 99285; A9270; G0480; 99283